=== PATIENT | male | born 1955 | race Caucasian/White ===

== ENCOUNTER → 2016-09-20 | Outpatient (CLI) | payer MEDICARE ==
[~2016-09-20] MED LIST: ALDACTONE25 MG PO; ASPIRIN LO-DOSE81 MG PO; COREG 3.1253.125 MG PO; COREG6.25 MG PO; COUMADIN6 MG PO; DEMADEX20 MG PO; KAZANO 12.5-1,1 EACH PO; LIVALO4 MG PO; LOTENSIN10 MG PO; MONTELUKAST SOD10 MG PO; NITROSTAT0.4 MG SL; PREVACID30 M1 PO; RANEXA ER500 MG PO; RANEXA1000 MG PO; THERAGRAN-M1 TAB PO; TRIAMCINOLONE454 GM; VITAMIN D1000 UNIT PO
[2016-09-20 14:19] LABS: ALBUMIN 3.7 gm/dL (3.5-5.0); ANION GAP 12.4 (10.0-19.0); CALCIUM 8.9 mg/dL (8.5-10.5); POTASSIUM 4.4 mMol/L (3.7-5.1); TOTAL BILIRUBIN 0.4 mg/dL (0.0-1.5); TOTAL PROTEIN 7.8 g/dL (6.0-8.4)
== END ==
LOC: LNHI 14:00
PROVIDERS: Internal Medicine Interventional Cardiology
DX: R60.0 Localized edema (principal); I25.5 Ischemic cardiomyopathy